=== PATIENT | male | born 2000 | race Caucasian/White ===

== ENCOUNTER 2023-01-26 16:40 | Emergency (ER) | payer OTHER ==
[~2023-01-26] VITALS: Ht 170.2 cm; Wt 86.4 kg
[2023-01-26] MEDS ORDERED: LIDOCAINE 2% W/EPINEPHRINE 20ML VIAL **PRES FREE INJ ONE (17:45)
[2023-01-26 18:42] VITALS: BP 125/68; TEMP 98; O2SAT 97
== END 2023-01-26 18:45 | disposition home or self-care (01) ==
LOC: M ED 16:40
DX: S71.011A Laceration without foreign body, right hip, initial encounter (principal); S31.010A Laceration without foreign body of lower back and pelvis without penetration into retroperitoneum, initial encounter; W19.XXXA Unspecified fall, initial encounter; Y92.009 Unspecified place in unspecified non-institutional (private) residence as the place of occurrence of the external cause